=== PATIENT | female | born 1950 | race Caucasian/White ===

== ENCOUNTER 2021-03-15 17:00 | Emergency (ER) | payer OTHER ==
[~2021-03-15] VITALS: Ht 157.5 cm; Wt 73.5 kg
[2021-03-15 23:31] VITALS: BP 116/77
== END 2021-03-15 23:40 ==
LOC: ER 17:00
PROVIDERS: Emergency Medicine
DX: F32.9 Major depressive disorder, single episode, unspecified (principal); Z20.822 Contact with and (suspected) exposure to COVID-19; Z88.5 Allergy status to narcotic agent

== ENCOUNTER 2021-03-15 18:52 | Inpatient (IN) | payer OTHER ==
[~2021-03-15] VITALS: Ht 157.5 cm; Wt 71.5 kg
--- NOTE | 2021-03-16 04:58 | NUR ---
PT WAS ADMITTED TO [facility] ON 03/14/2021 AT 2320. PT WAS COOPERATIVE WITH ADMISSION PROCESS. VITAL SIGNS WERE OBTAINED; PULSE WAS ELEVATED AT 111, PT STATED THIS IS DUE TO ANXIETY. SKIN ASSESSMENT PERFORMED; SOME BRUISING FROM PREVIOUS LAB DRAWS, RASH FROM WHERE TAPE WAS REMOVED, DRESSING ON LOWER BACK WHERE PT STATES A LUMBAR PUNCTURE WAS PERFORMED. PT IS AMBULATORY AND INDEPENDENT WITH ADLS. PT SIGNED HERSELF IN VOLUNTARILY. PT DOES NOT HAVE AN ADVANCED DIRECTIVE AND DOES NOT HAVE A DPOA. PT WAS ALERT AND ORIENTED X4. PT ENDORSED AUDITORY HALLUCINATIONS OF A "MEAN MAN." PT ENDORSED SI WITH NO PLAN. PT CONTRACTED FOR SAFETY WITH THIS RN. PT DENIED HI. PT STATED SHE WAS STARTED ON PROZAC TODAY BUT THIS IS NOT REFLECTED IN THE PAPERWORK SENT FROM . PT WAS ORIENTED TO THE UNIT, PROVIDED WITH TOILETRIES, AND LINENS. PT WENT TO SLEEP AFTER ADMISSION PROCESS.
[2021-03-16 06:19] LABS: CHOLESTEROL 286 mg/dL (<200); HDL CHOLESTEROL 62 mg/dL (>40); LDL CHOLESTEROL 176 mg/dL (<100); TC:HDL 4.6 Ratio (Not establshd); TRIGLYCERIDE 241 mg/dL (<150); VLDL 48 mg/dL (<40)
[2021-03-16 06:37] LABS: SERUM ASSESSMENT Clear
[2021-03-16 09:40] VITALS: BP 143/82
[2021-03-16 12:51] LABS: ABSOLUTE NEUTROPHILS 6.1 thou/uL (1.4-8.2); BASOPHILS 0.6 % (0.0-2.0); EOSINOPHILS 2.1 % (0.0-3.0); HEMATOCRIT 40.1 % (37.0-47.0); HEMOGLOBIN 13.4 gm/dL (12.0-15.0); LYMPHOCYTES 25.7 % (24.0-44.0); MCH 29.9 pg (26.0-34.0); MCHC 33.4 g/dL (28.0-37.0); MCV 89.8 fL (80.0-100.0); MONOCYTES 9.8 % (1.0-8.0); PLATELET COUNT 262 thou/uL (150-400); POLYS 61.8 % (36.0-66.0); RBC 4.47 mil/uL (4.20-5.00); WBC 9.9 thou/uL (4.0-11.0)
[2021-03-16 14:04] LABS: ALBUMIN 3.7 g/dL (3.4-5.0); CALCIUM 9.4 mg/dL (8.5-10.1); CREATININE 1.1 mg/dL (0.6-1.0); POTASSIUM 4.2 mmol/L (3.5-5.1); TOTAL BILIRUBIN 0.4 mg/dL (0.2-1.0)
--- NOTE | 2021-03-16 18:26 | NUR ---
PT ALERT AND ORIENTED TIMES FOUR WITH FLAT SAD AFFECT. VSS. PT DENIES SI/HI/AH/VH. PT DID NOT ATTEND GROUPS AND HAS LITTLE INTERACTION WITH STAFF. NONE WITH PEERS. PT TOLERATES MEDS AND MEALS. UP AB YAHAIRA WITH STEADY GAIT. WILL CONTINUE TO MONITOR.
[2021-03-16 19:34] VITALS: BP 130/78
[2021-03-17 02:06] LABS: GLYCOHEMOGLOBIN (HGB A1C) 6.1 % (4.8-5.6)
--- NOTE | 2021-03-17 04:17 | NUR ---
ASSUMED CARE ON 03/16/21 @ 1900 CALM, COOPERATAIVE WITH CARE, A&OX4. DENIES HI/AH/VH AFFIRMS DEPRESSION AND SI SAYING I'VE HURT MYSELF (IN THE PAST) DENIES FEELING SELF ABUSIVE THIS EVENING. REPORTS BM TODAY. TAKES MEDS WHOLE. HRRR, LUNGS CTA BILAT, ABD N X 4Q. SLEEPING WELL WITH BED IN LOW POSITION. WILL CONTIUE TO [facility] FOR COMFORT AND SAFETY PER UNIT PROTOCOL.
[2021-03-17 09:53] VITALS: BP 130/75
[2021-03-17 10:38] VITALS: BP 130/75; BP 157/60
--- NOTE | 2021-03-17 11:44 | NUR ---
RESUMMED CARE FROM OVERNIGHT SHIFT THIS AM, PATIENT IN ROOM LYING IN ROOM QUIET. PATIENT ALERT ORIETED TIMES 4 PATIENT HAS TREMORS BOTH HANDS. PATIENT DENIES SI/HI/AH/VH AT PRESENT; PATIENT DOES HAVE DEPRESSION AND ANXIETY WHICH SHE RATES A 6. PATIENT ATE BREAKFAST TOOK MEDICATION WITHOUT INCIDENCE, PATIENTS ABDOMEN SOFT BOWEL SOUNDS PRESENT. PATIENTS LUNGS CLEAR PATIENT CALM COOPERATIVE. WILL CONTINUE TO MONITOR PATIENT FOR SAFETY AND BEHAVIORS.
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
[2021-03-17 19:14] VITALS: BP 115/69
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
--- NOTE | 2021-03-18 02:56 | NUR ---
PATIENT HAS BEEN IN HER ROOM ALL EVENING ALL NIGHT. RATES HER DEPRESSION AND ANXIETY A 9/10 AND HAS ACTIVE SI WITH THOUGHTS TO OVERDOSE IF SHE WAS NOT HERE. PATIENT HEARS VOICES THAT SAY, "LET US GO". PATIENT IS ATTENDING GROUPS BUT DOES NOT BELIEVE THEY ARE HELPING. PATIENT IS MEDICATION COMPLIANT, IS CONTINENT OF BLADDER AND BOWEL, HAS STAEADY GAIT.
[2021-03-18 09:03] VITALS: BP 96/47
--- NOTE | 2021-03-18 13:09 | NUR ---
Assumed pt care at 0700. Pt was alert and oriented x4. Assessments completed, vss. Lungs clear, active bowel sounds. Denies si/hi, denies pain at this time. Took meds whole with thin liquid, no difficulty noted. Ambulates with a steady gait. No sign of acute distress noted upon assessments. Continent of bowel and bladder. Makes needs known to staff. Pt expressed to investment underwriter upon assessments that she now have reason to live. Pt goals was to continue to get better. At this time, pt is in her room resting. Will continue to monitor.
[2021-03-18 19:30] VITALS: BP 112/61
--- NOTE | 2021-03-19 04:26 | NUR ---
Assumed care on 03/19/21 @ 1900, in room keeps to self, cooperated with assessment and compliant with medicaiton administration. A&Ox4, calm and pleasant affect noted. HRRR, Lungs CTA bilat, ABD n x 4Q, reports BM today. low fall risk. bed in low position, will continue to monitor as per unit protocol for safety and comfort.
[2021-03-19 09:57] VITALS: BP 101/59
--- NOTE | 2021-03-19 16:44 | NUR ---
Assumed pt care at 0700. Pt was alert and oriented to person, time and situation. Assessments completed, vss. Lungs clear, active bowel sound. Denies si/hi. denies pain at this time. Took meds whole with thin liquid, no difficulty noted. Calm and cooperative with care. Ambulates with a steady gait. Continent of bowel and bladder. Makes needs known to staff. Ate all meals. Meds administered as ordered. AT this time pt is in the her room eating dinner. Will continue to monitor.
[2021-03-19 19:58] VITALS: BP 119/65
--- NOTE | 2021-03-20 04:15 | NUR ---
Assumed care on 03/19/21 @ 1900, VSS, cooperated with assessment, HRRR S1S2 auscultated, Breath sounds CTA bilat, ABD N x4Q, A&O x4, low fall risk with a Cordoba score of 30. Reports Anxiety, Depression with Hopelessness about her condition. Denies SI/HI. Denies MARTIN/HV. Calm and cooperative with care. Looking forward to getting back to her , friends and home. Reports that she sleeps heavy at NOC. Will continue to monitor for comfort and safety.
--- NOTE | 2021-03-20 05:52 | NUR ---
03/20/21 0600 Covid 19 PCR collected and sent to the lab @ 05:30.
[2021-03-20 07:38] VITALS: BP 111/67
[2021-03-20 09:17] VITALS: BP 111/67
--- NOTE | 2021-03-20 10:35 | NUR ---
Assumed care from overnight shift this am. Client was in room resting on bed. When asked about depression, client voiced that she was having some depression, but that it had gotten better as she had acclimated to environment. Client voiced that she did have anxiety over moving to a partial hospitalization program after her stay, stating that she had never done one of those. Client stated that she did not have any audio hallucinations, but did state that she thought her night time medication was too strong, as she woke up disoriented at night, and thought she saw things moving from her dreams. Client stated that she does not see any hallucinations during the day. Client presented oriented 3x at this time. Lung sounds clear; bowel sounds normal. Client educated on her bp medications at this time, as client asked what medications she was taking. Denies suicidal and homicidal ideations. No further concerns at this time. Will continue to monitor for pt safety and concerns.
[2021-03-20 19:55] VITALS: BP 102/57
[2021-03-20 20:30] VITALS: BP 92/58
--- NOTE | 2021-03-21 03:11 | NUR ---
PT HAS BEEN IN ROOM ALL NIGHT. SHE STATES SHE FEELS THE SEROQUEL IS CAUSING HER TO SLEEP ALL THE TIME. SHE IS DEPRESSED. SHE IS NERVOUS ABOUT GOING TO A POSSIBLE PARTIAL HOSPITAL DAY PROGRAM. SHE STATES SHE FEELS LIKE SHE DOESN'T NEED IT. SHE DOES NOT WANT TO GO TO COUNSELING. SHE STATES THAT HER DOESN'T GET IT AND SO SHE'S NOT GOING TO SHARE WITH HIM ANYMORE OR BLAME HIM FOR NOT UNDERSTANDING HER. WE DISCUSSED THE DANGERS OF STUFFING FEELINGS AND THAT IT IS HELPFUL TO HAVE A SUPPORT PERSON TO TALK WITH. SHE SEEMS NOT TO WANT TO RECIEVE HELP FROM OTHERS BUT TO KEEP HER ISSUES TOO HERSELF. SHE HAS BEEN CALM AND COOPERATIVE. SHE IS SLEEPING AT THIS TIME. DENIES SI/HI/AVH. DENIES PAIN. ROUTINE ROUNDS TO ASSESS SAFETY AND STATUS OF PATIENT.
[2021-03-21 09:05] VITALS: BP 120/66
[2021-03-21 09:50] VITALS: BP 120/66
[2021-03-21] MEDS ORDERED: BENAZEPRIL HCL20 MG PO (15:36)
[2021-03-21] MEDS ORDERED: LEXAPRO 10 MG T10 M1 PO (15:36)
[2021-03-21] MEDS ORDERED: CHLORTHALIDONE25 MG PO (15:37)
[2021-03-21] MEDS ORDERED: SYNTHROID100 MC1 PO (15:37)
[2021-03-21] MEDS ORDERED: B-12500 MCG PO (15:38)
[2021-03-21 16:41] VITALS: BP 120/66
--- NOTE | 2021-03-21 17:43 | NUR ---
RUFINO and Dr. Adkins met with the Pt. The Pt's and daughter attended by phone. An update and medications were reviewed. The recommendation for Pt to step down to a PHP program was given. Education was provided about PHP. It was also recommended Pt continue otpt mental health services after PHP was completed. Pt and family was in agreement to the plan. Discharge was set for 03/21/2021 @ 1700. The Pt's will transport. RUFINO set up and intake appointment for the Pt at [facility] program for 03/22/2021 @ 1030am. This information was provide to the Pt verbally and on the discharge documents.
--- NOTE | 2021-03-21 18:05 | NUR ---
Assumed care from table games shift manager this am. Client was in room resting on bed. Client was oriented 4x during assessment. Client stated that she felt better, denying any depression and anxiety. Client stated that she did not see any visual or audio hallucinations. Client lung sounds were clear; bowel sounds present. Client stated that she was excited to be going home today at 3pm. She stated that she was looking forward to seeing her and being back at her home. Client was encouraged to follow up with her PHP program recommended by doctor during pt education in the morning at this time. No further concerns at this time. Will continue to monitor for pt safety and concerns.
--- NOTE | 2021-03-21 18:08 | NUR ---
Client was discharged at 5:30pm. Client was provided education materials upon discharge with reccomendations from primary provider and treatment plan. Client's belongings were gathered, room cleaned, and paperwork printed for her discharge. Client voiced that she was happy and grateful to be going home, and stated that she would be following up with [facility] after discharge. Nursing walked client to her 's car, watching client get into car and leave facility safely. No further concerns at this time.
--- NOTE | 2021-03-24 09:42 | D ---
[facility] [place] [address] DISCHARGE SUMMARY Name: JOVANNI COLBERT Room #: 520A-A DIS IN M.R.#: [id number] Admission: 03/15/21 Attend Phys: Marko Perez DO Discharge: 03/21/21 Date of : 54 Report #: [id number] THIS REPORT FOR: cc: FAM - No family physician/PCP FAM - No family physician/PCP Marko Perez DO ~ DATE OF SERVICE: 03/21/2021 INPATIENT PSYCHIATRIC DISCHARGE SUMMARY ATTENDING PSYCHIATRIST: Marko Perez D.O. CERTIFIED PROSTHETIST: Dipti Pratt M.D. DISCHARGE DIAGNOSIS: Major depressive disorder, recurrent, severe degree with psychotic features, improved. MEDICAL COMORBIDITIES: Include hypothyroidism, TSH within normal limits; hypertension, on home medications. The patient is being discharged to her home where she lives with her , Jay. The patient will have PHP program intake at the [facility] in addition to [place], [place] on 03/22/2021. The patient is strongly encouraged to keep that intake appointment. The patient should see her primary care physician within 1 month for general medical followup. DISCHARGE DIET: Otherwise regular diet. ACTIVITY LEVEL: As tolerated. No alcohol, no illicit drugs. Return to ER if suicidal or homicidal ideations, chest pain, dizziness, fever greater than 101, shortness of breath, increased swelling, edema. The patient was given crisis suicide hotline information. HOME MEDICATIONS: Lisinopril 30 mg oral daily at 0900 hours, escitalopram 10 mg oral daily at 0900 hours, chlorthalidone 25 mg oral daily for hypertension, Lexapro is for depression, levothyroxine 100 mcg oral daily at 0700 hours, vitamin B12 1000 mcg oral daily for supplementation. Levothyroxine is for hypothyroidism. The patient's medications were e-scribed today at [facility]. LABORATORY DATA: This admission on 03/16 shows white count 9.9, H and H 13.4 and 40.1, platelet count 262. Chemistry: Sodium 140, potassium 4.2, chloride 103, bicarbonate 28, anion gap 9, BUN 17, creatinine 1.1, estimated GFR 49, glucose 104. A1c was 6.1, calcium 9.4, total bilirubin 0.4, AST 40, ALT 80, alkaline phosphatase 85, total protein 7.0, albumin 3.7. Triglycerides 241, slightly high; cholesterol 286, high; LDL 176; HDL 62. TSH 3.212. COVID-19 serology was negative on 03/18 and 03/20. [address] [address] DISCHARGE SUMMARY Name: JOVANNI COLBERT Room #: 520A-A [facility] [place] ..#: [id number] Admission: 03/15/21 Attend Phys: Marko Perez, Discharge: 03/21/21 Date of : 54 Report #: [id number] REASON FOR ADMISSION: Back on 10/05, 70-year-old female sent from [facility]. She had complaints of paranoia, and not eating well, constantly worrying, a number of delusional thoughts. HOSPITAL COURSE: The patient was admitted to Geriatric Psychiatry Unit. Based on history and current presentation, she was diagnosed with major depressive disorder, recurrent, severe with psychotic features. She was initially started on Haldol and 5 mg a day Lexapro that later got changed to the Seroquel XR, first took 200 mg and then 300 mg. Delusional thinking and quickly remitted. The patient complains about increased sedation. She was discharged. When I saw her, she requested discontinuation of the Seroquel. I honored that. I explained that at this point she would need to step-down to [facility], recommended consideration be given to a different antipsychotic. On the day of discharge, we had a telephonic family meeting with her , Jay, and [id number]. We discussed the concerns and the need for both psychiatric medication provider as well as a psychotherapist, importance of PHP participation. The patient is not suicidal, homicidal, felt to be stable for step-down. PHYSICAL EXAMINATION: VITAL SIGNS: On the day of discharge are as follows: Temperature 36.5, pulse 72, respirations 17, BP 120/66, O2 sat 99%. MUSCULOSKELETAL: Normal gait and station. Wearing glasses, street clothes. MENTAL STATUS EXAMINATION: This is a well-developed, age-appearing female. Attention and concentration fair. Speech is slow, somewhat monotone. Thought process: Linear and goal directed. Thought content: Focused on discharge. Denied suicidal or homicidal ideation, auditory and visual or tactile hallucinations. Mood and affect was okay, constricted, congruent. Memory not formally tested. Insight and judgment were fair. Fund of knowledge above average. Prognosis for this patient is fair. She continues to engage in professional treatment for the psychotic depression. <ELECTRONICALLY SIGNED> By: Marko Perez DO 03/24/21 [id number] Marko Perez DO /nt
== END 2021-03-21 17:30 | disposition home or self-care (01) | DRG 885 ==
LOC: SBH
PROVIDERS: ADMIT Psychiatry & Neurology Psychiatry; ATTEND Psychiatry & Neurology Psychiatry
DX: F33.3 Major depressive disorder, recurrent, severe with psychotic symptoms (principal); F01.50 Vascular dementia, unspecified severity, without behavioral disturbance, psychotic disturbance, mood disturbance, and anxiety; E43 Unspecified severe protein-calorie malnutrition; R45.851 Suicidal ideations; F41.9 Anxiety disorder, unspecified; Z20.822 Contact with and (suspected) exposure to COVID-19; I10 Essential (primary) hypertension; E03.9 Hypothyroidism, unspecified; E66.9 Obesity, unspecified; Z73.1 Type A behavior pattern; Z68.28 Body mass index [BMI] 28.0-28.9, adult; Z88.8 Allergy status to other drugs, medicaments and biological substances
CPT/HCPCS: 10880